=== PATIENT | female | born 1935 | race Caucasian/White ===

== ENCOUNTER 2019-05-09 06:17 | Day surgery (SDC) | payer OTHER, BC ==
[2019-05-07 18:30] VITALS: BMI 28.3
[~2019-05-09 06:17] MED LIST: ACETAMINOPHEN 325 MG TABLET (FP) PO PRN
[2019-05-09] MEDS ORDERED: TROPICAMIDE 1% OPHTH SOLN 15 ML BOTTLE ONE (06:50)
[2019-05-09] MEDS ORDERED: OFLOXACIN 0.3% OPHTHALMIC SOLUTION 5 ML BOTTLE ONE (06:50)
[2019-05-09] MEDS ORDERED: PHENYLEPHRINE 2.5% OPHTH SOLN 15 ML BOTTLE ONE (06:50)
[2019-05-09] MEDS ORDERED: KETOROLAC TROMETHAMINE 0.5% EYE DROP 1 DROP DROPS ONE (06:50)
[2019-05-09] MEDS ORDERED: CYCLOPENTOLATE HCL 1% OPHTH SOLN 2 ML BOTTLE ONE (06:50)
[2019-05-09 07:07] VITALS: TEMP 98
[2019-05-09] MEDS: CYCLOPENTOLATE HCL 1% OPHTH SOLN 2 ML BOTTLE OP SCH ×3 (07:10→07:36)
[2019-05-09] MEDS: OFLOXACIN 0.3% OPHTHALMIC SOLUTION 5 ML BOTTLE OP SCH ×3 (07:10→07:36)
[2019-05-09] MEDS: TROPICAMIDE 1% OPHTH SOLN 15 ML BOTTLE OP SCH ×3 (07:10→07:36)
[2019-05-09] MEDS: KETOROLAC TROMETHAMINE 0.5% EYE DROP 1 DROP DROPS OP SCH ×3 (07:10→07:36)
[2019-05-09] MEDS: PHENYLEPHRINE 2.5% OPHTH SOLN 15 ML BOTTLE OP SCH ×3 (07:10→07:36)
[2019-05-09] MEDS ORDERED: CHONDROITIN SU A/HYALUR SOD 1 KIT ONE (07:25)
[2019-05-09] MEDS ORDERED: EPINEPHrine/PF 1 MG/1 ML (1:1,000) AMPULE ONE (07:42)
[2019-05-09] MEDS ORDERED: TRYPAN BLUE 0.5 ML DISP.SYRIN ONE (07:43)
[2019-05-09] MEDS ORDERED: TETRACAINE 0.5% OPHTH SOLN 2 ML BOTTLE ONE (07:43)
[2019-05-09] MEDS ORDERED: LIDOCAINE HCL/PF 1% SDV 5ML VIAL ONE (07:43)
[2019-05-09] MEDS ORDERED: MIDAZOLAM HCL 2 MG/2 ML SINGLE DOSE VIAL ONE (08:52)
[2019-05-09] MEDS ORDERED: TETRACAINE 0.5% OPHTH SOLN 2 ML BOTTLE OD ONE (08:53)
[2019-05-09] MEDS ORDERED: POVIDONE-IODINE 5% OPHTHALMIC PREP 30 ML SOLUTION OD ONE (08:54)
[2019-05-09] MEDS ORDERED: TRYPAN BLUE 0.5 ML DISP.SYRIN IO ONE (09:00)
[2019-05-09] MEDS ORDERED: LIDOCAINE HCL 1% PRESERVATIVE FREE - 30ML VIAL IO ONE (09:00)
[2019-05-09] MEDS ORDERED: CHONDROITIN SU A/HYALUR SOD 1 KIT IO ONE (09:00)
[2019-05-09] MEDS ORDERED: BSS (NA/CA/MG/K) BALANCED SALT SOLUTION OPHTH SOLN 15 ML BOTTLE OD ONE (09:00)
[2019-05-09] MEDS ORDERED: EPINEPHrine/PF 1 MG/1 ML (1:1,000) AMPULE SQ ONE (09:08)
[2019-05-09] MEDS ORDERED: ACETAMINOPHEN 325 MG TABLET (FP) ONE (09:44)
[2019-05-09 10:22] VITALS: BP 145/69; PULSE 88
--- NOTE | 2019-05-09 11:45 | SPEC ---
DATE OF OPERATION: DATE OF DICTATION: 05/09/2019 OPERATION: Phacoemulsification of right cataract with capsular staining with Trypan blue and posterior chamber intraocular lens implantation. The lens used [id number], 12.5 Diopter power, Serial No. [id number]. PREOPERATIVE DIAGNOSIS: Cataract, right eye. ASSOCIATIVE DIAGNOSIS: Persistent myosis, right eye. POSTOPERATIVE DIAGNOSIS: Cataract, right eye. SURGEON: Shasha Lombardi M.D. ANESTHESIA: Topical MAC. COMPLICATIONS: None. PROCEDURE: The patient was brought to the operating room and correctly identified along with the operative site as well as correct intraocular lens borjas. The patient was then prepped and draped in the usual sterile fashion including 5% Betadine solution in the conjunctival sac and an eyelid drape. An eyelid speculum was then placed into the operative eye. The eye was inspected and a poor red reflex was noted. A paracentesis port was created and .5 mL of intracameral preservative-free Lidocaine 1% was given. Beneath an air bubble, the capsule was then stained with Trypan blue. The Trypan blue was then irrigated from the eye with balanced salt solution (BBS). Viscoelastic was injected to inflate the anterior chamber. A temporal clear corneal would was created. A continuous circular capsulorrhexis was performed. The nucleus was then hydro-dissected and hydro-delineated was BSS and removed with phacoemulsification via [id number] approach. The remaining cortical material was irrigated and aspirated from the eye. Viscoelastic was injected in the anterior chamber to inflate the capsular bag. The intraocular lens was then injected into the bag. The Viscoelastic was irrigated and aspirated from the eye. All wounds were tested and found to be watertight. No suture was placed. The intraocular lens was noted to be well centered and covered by the anterior capsular border. Topical Vancomycin was given. The eye was patched and shielded. The patient was discharged from the operating room in stable condition. SHASHA LOMBARDI M.D. [id number]
== END 2019-05-09 10:31 | disposition home or self-care (01) ==
LOC: JASU-SURG 06:17
PROVIDERS: ATTEND Ophthalmology
PROC: 08RJ3JZ Replacement of Right Lens with Synthetic Substitute, Percutaneous Approach (ICD-10-PCS; principal; 2019-05-09 08:45)
DX: H26.9 Unspecified cataract (principal); H57.03 Miosis

== ENCOUNTER 2019-05-12 19:57 | Emergency (ER) | payer OTHER, BC ==
[2019-05-12 20:11] VITALS: TEMP 98.5; BMI 29.5
[2019-05-12] MEDS ORDERED: ACETAMINOPHEN 1000 MG/100 ML VIAL (NON FORMULARY) IVPB ONE (20:44)
[2019-05-12] MEDS ORDERED: ACETAMINOPHEN INJECTION 100 ML IVPB ONE (20:49)
--- NOTE | 2019-05-12 20:49 | PDOC ---
History of Present Illness - General Chief Complaint: Vaginal Bleeding Stated Complaint: VAGINAL BLEEDING W/ BACK PAIN Time Seen by Provider: 05/12/19 20:27 History Source: Patient Exam Limitations: No Limitations - History of Present Illness Travel History: No Initial Comments: 05/12/19 20:45 83y F with PMH of HTN, HLD, Breast Ca s/p Lumpectomy >10y ago, R hip fusion, R knee replacement, Cholecystectomy presenting to ED with complaints of vaginal bleeding. Around 4pm today pt was cleaning the kitchen when she felt something like urine go down her leg. She went to see what it was and it looked brown/ bloody. She states that the color changed to red but no clots were passed. Has soaked through 10 liners and a roll of toilet paper. Bleeding is intermittent. She states that she has also had pain in the R hip/flank for "a long time" but thought it was due to the fusion. She endorses lower back pain along with the bleeding. Denies n/v/d, urinary symptoms, diarrhea, bloody stools, chest pain, sob, headache, weight loss, loss of appetite. LMP when she was in her 60s, she had regular periods every month x7d and states they were heavy. Never took OCPs or hormones. Not on ACs. PMD: Gloria PMH: see hpi PSH: see hpi Meds: losartan, simvastatin, diclofenac Allergies: PCN (rash/hives) Social: occasionally drinks wine Past History - Past Medical History Allergies/Adverse Reactions: Allergies Allergy/AdvReac Type Severity Reaction Status Date / Time Penicillins Allergy Verified 05/12/19 20:11 Home Medications: Ambulatory Orders Acetaminophen [Tylenol] 325 mg PO PRN 05/07/19 Cholecalciferol (Vitamin D3) [Vitamin D3] 1,000 unit PO DAILY 05/07/19 Diclofenac Sodium [Voltaren -] 50 mg PO DAILY 05/07/19 Losartan Potassium [Cozaar -] 50 mg PO DAILY 05/07/19 Simvastatin [Zocor -] 40 mg PO HS 05/07/19 Cancer: Yes (BREAST) COPD: No HTN: Yes Hypercholesterolemia: Yes - Surgical History Cholecystectomy: Yes Orthopedic Surgery: Yes (RT TKR,) - Psycho Social/Smoking Cessation Hx Smoking History: Never smoked Have you smoked in the past 12 months: No If you are a former smoker, when did you quit?: 30 YEARS AGO Information on smoking cessation initiated: No Hx Alcohol Use: No Drug/Substance Use Hx: No Substance Use Type: None Review of Systems - Review of Systems Constitutional: Yes: Weight Stable. No: Chills, Fever HEENTM: No: Symptoms Reported Respiratory: No: Symptoms reported Cardiac (ROS): No: Symptoms Reported ABD/GI: No: Symptoms Reported : Yes: See HPI Musculoskeletal: Yes: Back Pain, Other (R hip pain) Integumentary: No: Symptoms Reported Neurological: No: Symptoms reported *Physical Exam - Vital Signs Last Vital Signs Temp Pulse Resp BP Pulse Ox 98.5 F 92 H 17 184/84 H 100 05/12/19 20:07 05/12/19 20:07 05/12/19 20:07 05/12/19 20:07 05/12/19 20:07 - Physical Exam General Appearance: Yes: Nourished, Appropriately Dressed, Mild Distress HEENT: positive: EOMI, MACRINA, Normal ENT Inspection Neck: positive: Trachea midline, Supple. negative: Lymphadenopathy (R), Lymphadenopathy (L) Respiratory/Chest: positive: Lungs Clear, Normal Breath Sounds. negative: Crackles, Rales, Stridor Cardiovascular: positive: Regular Rhythm, Regular Rate, S1, S2. negative: Edema , JVD, Murmur Vascular Pulses: Dorsalis-Pedis (R): 2+, Doralis-Pedis (L): 2+ Female Pelvic Exam: positive: normal external exam, vaginal bleeding (blood is oozing). negative: CMT, lesions, adnexal tenderness Gastrointestinal/Abdominal: positive: Normal Bowel Sounds, Soft. negative: Tender, Guarding, Rebound, Mass Musculoskeletal: positive: Other (R hip tenderness/flank tenderness). negative : CVA Tenderness Extremity: positive: Pelvis Stable. negative: Swelling, Calf Tenderness, Erythema Integumentary: positive: Normal Color, Dry, Warm Neurologic: positive: seating and mobility technologist II-XII NML intact, Fully Oriented, Alert, Normal Mood/ Affect, Normal Response, Motor Strength 5/5 ED Treatment Course - LABORATORY CBC & Chemistry Diagram: 05/13/19 01:03 05/12/19 21:12 Medical Decision Making - Medical Decision Making 05/12/19 21:17 83y F with PMH of HTN, HLD presenting with vaginal bleeding that started today. Endorses back pain. vitals: slight tachycardia, hypertensive. ddx includes but not limited to coagulopathy, mass/malignancy (ovarian v. uterine), hormonal imbalance. Low suspicion for spinal pathology/abdomninal pathology. low suspicion for kidney stones. ordered preop labs, ua, ucx, tvus ofirmev. will discuss case with greeter guest services 05/13/19 00:25 *4.3 cm x 3.4 cm echogenic mass in the endometrium with moderate endometrial fluid, concerning for malignancy. Hysteroscopy is recommended for further evaluation. No large ovarian cysts. No significant free pelvic fluid Discussed with Dr. Pa. Will order CBC at 1am to monitor for changes. if stable, pt can be dc. Will discuss results with Dr. pa and try to arrrange appointment tuesday or early next week. Pt and family agreeable to plan. If h/h drops, then consider admission 05/13/19 02:38 hgb dropped by 1u. called equipment processor: does not need admission, can f/u in office. will provide information to patient. can be dc home. given strict return precautions. dispo home greeter guest services f/u Discharge - Discharge Information Problems reviewed: Yes Clinical Impression/Diagnosis: Vaginal bleeding, abnormal, Uterine mass - Follow up/Referral Referrals: Abhishek Castro MD [Primary Care Provider] - Wilman Pa MD [Staff Physician] - - Patient Discharge Instructions Patient Printed Discharge Instructions: DI for Abnormal Uterine Bleeding Additional Instructions: You were seen in the emergency room today for uterine bleeding. The ultrasound report was given to you, it shows a 4cm x 3cm mass. As we discussed, this mass may be cancerous and must be followed up with a [employer] doctor within [address] Pa ([employer] doctor) wants to see you in the office. You can walk in on Tuesday 05/15 and let them know you were seen in the emergency room or you can call the office first thing Tuesday morning for follow up within 2-3 days. The information is provided below for his office is provided below. It is located at [address] [place] [address]. Stop taking the diclofenac as it can make bleeding worse. You can take Tylenol 500mg every 4 hours or 1000mg every 6 hours. Do not take more than 4000mg a day as it can cause damage to the liver. Come back to the emergency room if you are soaking more than 2 pads for more than 2 hours, you start feeling lightheaded, you pass out, your pain is increasing or if you have any new or concerning symptoms. Thank you Print Language: JAPANESE - Post Discharge Activity
[2019-05-12 21:25] LABS: EOS % 2.1 % (0-4.5); HEMATOCRIT 40.1 % (32.4-45.2); MCH 26.5 pg (25.7-33.7); MCHC 32.3 g/dl (32.0-36.0); MEAN PLT VOLUME 8.6 fl (7.5-11.1); MONO % 8.6 % (3.8-10.2); NEUT % 71.3 % (42.8-82.8); PLATELET COUNT 219 K/MM3 (134-434); RBC 4.89 M/mm3 (3.60-5.2); RDW 13.8 % (11.6-15.6); WHITE BLOOD COUNT 8.3 K/mm3 (4.0-10.0)
[2019-05-12 21:38] LABS: INR 0.96 (0.83-1.09); PROTHROMBIN TIME (PATIENT) 11.3 SEC (9.7-13.0)
[2019-05-12 21:40] LABS: HYALINE CASTS 0 /lpf (0-8); URINE APPEARANCE CLOUDY; URINE BACTERIA 14.6 /hpf (NEGATIVE); URINE BILIRUBIN NEGATIVE (NEGATIVE); URINE COLOR YELLOW; URINE GLUCOSE (UA) NEGATIVE (NEGATIVE); URINE KETONE TRACE (NEGATIVE); URINE LEUK ESTERASE TRACE (NEGATIVE); URINE NITRITE NEGATIVE (NEGATIVE); URINE PROTEIN TRACE (NEGATIVE); URINE RBC 677 /hpf (0-4); URINE WBC 6 /hpf (0-5)
[2019-05-12 21:41] LABS: ACTIVATED PTT 35.5 SECONDS (25.2-36.5)
[2019-05-12 22:06] LABS: ALBUMIN 3.8 g/dl (3.4-5.0); BILIRUBIN,TOTAL 0.4 mg/dL (0.2-1); BLOOD UREA NITROGEN 21.7 mg/dL (7-18); CALCIUM 9.5 mg/dL (8.5-10.1); CREATININE 1.3 mg/dL (0.55-1.3); POTASSIUM 4.5 mmol/L (3.5-5.1); TOT PROT 7.2 g/dl (6.4-8.2)
--- NOTE | 2019-05-12 23:32 | PDOC ---
Documentation entered by Pamela Leonard SCRIBE, acting as scribe for Mickey Maguire MD. Mickey Maguire MD: This documentation has been prepared by the josiahibe, Pamela Leonard SCRIBE, under my direction and personally reviewed by me in its entirety. I confirm that the documentation accurately reflects all work, treatment, procedures, and medical decision making performed by me. Attending Attestation - Resident Resident Name: Farhana Byrd - ED Attending Attestation I have performed the following: I have examined & evaluated the patient, The case was reviewed & discussed with the resident, I agree w/resident's findings & plan, Exceptions are as noted - HPI HPI: 05/12/19 21:34 The patient is an 83 year old female with a past medical history significant for HTN, HLD, R. hip fusion, Knee replacement and Breast CA s/p lumpectomy who presents to the emergency department with vaginal bleeding since 4:00 pm today. The patient reports she was cleaning the kitchen, when she felt something leaking down her legs. The patient went to the bathroom to check, and she noticed brownish fluid leaking down the leg, which has been progressively becoming red. Denies passing clots. The patient reports intermittent bleeding episodes since then, that she described as gush of blood coming out. The patient reports using multiple panty liners and a toilet tissue roll since the presentation. The patient reports a chronic history of right hip pain which she attributes to the hip fusion, however she currently reports increased right hip/ back pain. Not on a blood thinner. Denies abdominal pain, nausea, vomiting, diarrhea, chest pain, shortness of breath, night sweats, numbness, weakness or suprapubic pain. Denies family history of uterine CA. LMP: The patient recalls her last menstrual cycle was in her 60s, which she states was regular and lasted 7 days. Allergies: penicillins - Physicial Exam PE: 05/12/19 23:26 GENERAL: Awake, alert, and fully oriented, in no acute distress EYES: PERRLA, EOMI, sclera anicteric, conjunctiva clear ENT:Oropharynx clear without exudates. Moist mucosa NECK: Normal ROM, supple, no lymphadenopathy, JVD, or masses LUNGS: Breath sounds equal, clear to auscultation bilaterally. No wheezes, and no crackles HEART: Regular rate and rhythm, normal S1 and S2, no murmurs, rubs or gallops ABDOMEN: Soft, nontender, normoactive bowel sounds. No guarding, no rebound. No masses PELVIC: normal external genitalia. No midline, adnexal pain or CMT. No masses or lesions noted in vault, on cervix. +small amount dark blood oozing from os, no clots. EXTREMITIES: Normal range of motion, no edema. No cords, erythema, or tenderness BACK: No midline cervical, thoracic, lumbar ttp NEUROLOGICAL: Normal speech, cranial nerves intact, equal strength and sensation b/l SKIN: Warm, Dry, normal turgor, no rashes or lesions noted. 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 Guthrie who recommends a 4-hour CBC. If stable patient can follow-up with OB as an outpatient. All results discussed with patient and her 2 children at the bedside. All questions answered. They are in agreement with our current plan. Plan for repeat CBC at 1 AM. 05/13/19 02:51 Repeat CBC with three-point hematocrit drop and one point hemoglobin drop. Discussed with Dr. Pa, patient stable for discharge home. Patient can follow-up in the walk-in clinic next week or she can call Dr. Guthrie's office for an appointment within 5 days. Discussed with patient and family return precautions for persistent bleeding and to return to the emergency department immediately if she is soaking through 2 more pads for more than 2 hours. Patient also advised to stop taking diclofenac which she has been taking for her right hip pain in light of vaginal bleeding. Patient and family expressed understanding of plan, follow-up and return precautions. I discussed the physical exam findings, ancillary test results and final diagnoses with the patient. I answered all of the patient's questions. The patient was satisfied with the care received and felt comfortable with the discharge plan and treatment plan. The patient will call their primary care physician within 24 hours to arrange follow-up and will return to the Emergency Department with any new, persistent or worsening symptoms.
[2019-05-13] MEDS ORDERED: ACETAMINOPHEN 500 MG TABLET (FP) PO ONE (00:46)
[2019-05-13] MEDS ORDERED: ACETAMINOPHEN 325 MG TABLET (FP) ONE (00:50)
[2019-05-13 01:49] LABS: HEMATOCRIT 36.6 % (32.4-45.2); MCH 26.5 pg (25.7-33.7); MCHC 32.6 g/dl (32.0-36.0); MEAN CELL VOLUME 81.3 fl (80-96); MEAN PLT VOLUME 8.6 fl (7.5-11.1); PLATELET COUNT 183 K/MM3 (134-434); RBC 4.51 M/mm3 (3.60-5.2); RDW 13.9 % (11.6-15.6); WHITE BLOOD COUNT 6.5 K/mm3 (4.0-10.0)
[2019-05-13 03:13] VITALS: BP 185/82; PULSE 78
== END 2019-05-13 03:13 | disposition home or self-care (01) ==
LOC: JER 19:57
PROC: 3E033NZ Introduction of Analgesics, Hypnotics, Sedatives into Peripheral Vein, Percutaneous Approach (ICD-10-PCS; principal; 2019-05-12)
DX: N85.8 Other specified noninflammatory disorders of uterus (principal); I10 Essential (primary) hypertension; E78.5 Hyperlipidemia, unspecified; Z85.3 Personal history of malignant neoplasm of breast; M24.651 Ankylosis, right hip; Z96.651 Presence of right artificial knee joint; Z90.49 Acquired absence of other specified parts of digestive tract; Z88.0 Allergy status to penicillin
CPT/HCPCS: 36415; 76830-TC; 80053; 81003; 85025; 85027; 85610; 85730; 86850; 86900; 86901; 87086; 96374; 99284-25; J0131

== ENCOUNTER 2023-04-13 05:04 | Day surgery (SDC) | payer OTHER, BC ==
[2023-04-12 16:25] VITALS: BMI 29.0
[2023-04-13] MEDS ORDERED: LIDOCAINE HCL/PF 1% SDV 5ML VIAL ONE (07:15)
[2023-04-13] MEDS ORDERED: TRYPAN BLUE 0.5 ML DISP.SYRIN ONE (07:15)
[2023-04-13] MEDS ORDERED: VANCOMYCIN 500 MG VIAL (RESTRICTED TO ID ONLY) ONE (07:15)
[2023-04-13] MEDS ORDERED: TROPICAMIDE 1% 3 ML EYE DROPS ONE (07:16)
[2023-04-13] MEDS ORDERED: PHENYLEPHRINE 2.5% OPTHALMIC DROP 2ML BOTTLE ONE (07:16)
[2023-04-13] MEDS ORDERED: CYCLOPENTOLATE HCL 1% OPHTH SOLN 2 ML BOTTLE ONE (07:16)
[2023-04-13] MEDS ORDERED: OFLOXACIN 0.3% OPHTHALMIC SOLUTION 5 ML BOTTLE ONE (07:16)
[2023-04-13] MEDS ORDERED: KETOROLAC TROMETHAMINE 0.5% EYE DROP 1 DROP DROPS ONE (07:16)
[2023-04-13 07:33] VITALS: RESP 18
[2023-04-13] MEDS ORDERED: OFLOXACIN 0.3% OPHTHALMIC SOLUTION 5 ML BOTTLE OS ONE (07:35)
[2023-04-13] MEDS ORDERED: PHENYLEPHRINE 2.5% OPHTH SOLN 15 ML BOTTLE OS ONE (07:35)
[2023-04-13] MEDS ORDERED: KETOROLAC TROMETHAMINE 0.5% EYE DROP 1 DROP DROPS OS ONE (07:35)
[2023-04-13] MEDS ORDERED: CYCLOPENTOLATE HCL 1% OPHTH SOLN 2 ML BOTTLE OS ONE (07:35)
[2023-04-13] MEDS ORDERED: TROPICAMIDE 1% OPHTH SOLN 15 ML BOTTLE OS ONE (07:35)
[2023-04-13] MEDS ORDERED: TETRACAINE 0.5% OPHTH SOLN 2 ML BOTTLE ONE (07:39)
[2023-04-13] MEDS ORDERED: POVIDONE-IODINE 5% OPHTHALMIC PREP 30 ML SOLUTION ONE (07:39)
[2023-04-13] MEDS: OFLOXACIN 0.3% OPHTHALMIC SOLUTION 5 ML BOTTLE OP SCH ×2 (08:00→08:05)
[2023-04-13] MEDS: CYCLOPENTOLATE HCL 1% OPHTH SOLN 2 ML BOTTLE OP SCH ×2 (08:00→08:05)
[2023-04-13] MEDS: KETOROLAC TROMETHAMINE 0.5% EYE DROP 1 DROP DROPS OP SCH ×2 (08:00→08:05)
[2023-04-13] MEDS: PHENYLEPHRINE 2.5% OPHTH SOLN 15 ML BOTTLE OP SCH ×2 (08:00→08:05)
[2023-04-13] MEDS: TROPICAMIDE 1% OPHTH SOLN 15 ML BOTTLE OP SCH ×2 (08:00→08:05)
[2023-04-13] MEDS ORDERED: MIDAZOLAM HCL 2 MG/2 ML SINGLE DOSE VIAL ONE (09:03)
[2023-04-13] MEDS ORDERED: TETRACAINE 0.5% HCL 0.6ML DROPPER.BOTTLE OS ONE (09:08)
[2023-04-13] MEDS ORDERED: POVIDONE-IODINE 5% OPHTHALMIC PREP 30 ML SOLUTION OS ONE (09:09)
[2023-04-13] MEDS ORDERED: BSS (NA/CA/MG/K) BALANCED SALT SOLUTION OPHTH SOLN 15 ML BOTTLE IO ONE (09:15)
[2023-04-13] MEDS ORDERED: TRYPAN BLUE 0.5 ML DISP.SYRIN IO ONE (09:16)
[2023-04-13] MEDS ORDERED: LIDOCAINE HCL 1% PRESERVATIVE FREE - 30ML VIAL IO ONE (09:16)
[2023-04-13] MEDS ORDERED: CHONDROITIN SU A/HYALUR SOD 1 KIT IO ONE (09:18)
[2023-04-13] MEDS ORDERED: EPINEPHrine/PF 1 MG/1 ML (1:1,000) AMPULE IO ONE (09:20)
[2023-04-13] MEDS ORDERED: ACETAMINOPHEN 325 MG TABLET (FP) ONE (10:06)
[2023-04-13 11:35] VITALS: TEMP 97.8
[2023-04-13 11:39] VITALS: BP 122/59; PULSE 61
== END 2023-04-13 11:06 | disposition home or self-care (01) ==
LOC: JASU-SURG 05:04
PROVIDERS: ATTEND Ophthalmology
PROC: 08RK3JZ Replacement of Left Lens with Synthetic Substitute, Percutaneous Approach (ICD-10-PCS; principal; 2023-04-13 09:00)
DX: H25.89 Other age-related cataract (principal)
CPT/HCPCS: 66984; V2632